=== PATIENT | female | born 1980 | race Caucasian/White ===

== ENCOUNTER 2022-06-23 20:36 | Outpatient (CLI) | payer MEDICAID, SELFPAY | END 2022-06-23 20:37 | disposition home or self-care (01) | PROVIDERS: PCP Family Medicine; Visit Provider Internal Medicine | DX: G47.33 Obstructive sleep apnea (adult) (pediatric) (principal) | CPT/HCPCS: 95810 ==

== ENCOUNTER 2023-10-06 14:32 | Outpatient (CLI) | payer MEDICAID, SELFPAY | END 2023-10-06 14:33 | disposition home or self-care (01) | PROVIDERS: PCP Family Medicine; Visit Provider Family Medicine | DX: M54.16 Radiculopathy, lumbar region (principal); M51.36 Other intervertebral disc degeneration, lumbar region | CPT/HCPCS: 62323; J0702; Q9966 ==

== ENCOUNTER 2024-03-08 08:47 | Outpatient (CLI) | payer MEDICAID, SELFPAY ==
--- OUTSIDE RECORDS SUMMARY | 2024-03-08 08:55 | XMS_ITS | Clinical Summary ---
Author Organization [facility] Address [place], [place] [address] Care Team Providers Care Lay Out And Detail Drafter Name Role Phone Dewayne [place] MD Primary Care Provider [phone] Tiffanie Armenta PA Unavailable Allergies Active Allergy Reactions Criticality Noted Date Comments Adhesive Angioedema,Rash High 11/24/2016 Had to have epi pen in ER Baclofen Other - Describe In Comment Field Medium 09/26/2020 Diffuse numbness Bee Pollen Other - Describe In Comment Field Low 11/18/2016 Sneezing, runny nose Sneezing, runny nose Other reaction(s): Other (See Comments) Sneezing, runny nose Other reaction(s): Other (See Comments) Sneezing, runny nose Grass Pollen Other - Describe In Comment Field Medium 11/18/2016 Sneezing, runny nose Nsaids (Non-Steroidal Anti-Inflammatory Drug) Other - Describe In Comment Field Medium 03/16/2017 PT has had a gastric bypass Other reaction(s): Other (See Comments) H/O ulcer Gastric bypass Tolmetin Stomach Upset Medium 03/16/2017 Other reaction(s): Other (See Comments) H/O ulcer Tree And Shrub Pollen Other - Describe I n Comment Field Low 11/18/2016 Sneezing, runny nose Medications Medication Sig Dispensed Refills Start Date End Date Status multivitamin (MVI) tablet Take 1 Tablet by mouth once daily. Active CPAPIndications:OS A (obstructive sleep apnea) CPAP machine for home use at pressure 5 cmw, full face mask x1/3month with a full face cushion x1/mo 1 Each 11 10/03/19 23 Active diclofenac topical (Voltaren) 1 % gelIndications:Chr onic midline low back pain without sciatica,Bilateral hip pain Apply 2 g topically to affected area(s) four times daily. 100 g 2 11/28/19 23 Active prazosin (MINIPRESS) 5 mg capsuleIndications :Posttraumatic stress disorder Take 2 Capsules (10 mg) by mouth two times daily. 360 Capsule 3 08/26/19 24 Active Insulin [place], Disposable, (BD Perla 2nd Gen Pen Needle) 32 gauge x /32Indications:M orbid obesity with BMI of 40.0-44.9, adult (HC) USE DIRECTED REMOVE THE 2 COVERS ON THE INSULIN PEN NEEDLE BEFORE ADMINISTERING INSULIN DOSE 100 Each 3 09/02/19 24 Active clomiPRAMINE 75 mg capsuleIndications :Generalized anxiety disorder,Mixed obsessional thoughts and acts,Major depressive disorder, recurrent, moderate (HC),Posttraumatic stress disorder,Panic disorder with agoraphobia Take 3 Capsules (225 mg) by mouth at bedtime. 270 Capsule 3 09/02/19 24 Active vortioxetine (TRINTELLIX) 20 mg tabletIndications: Generalized anxiety disorder,Illness anxiety disorder,Mixed obsessional thoughts and acts,Major depressive disorder, recurrent, moderate (HC),Posttraumatic stress disorder,Panic disorder with agoraphobia Take 1 Tablet (20 mg) by mouth once daily. 90 Tablet 3 09/02/19 24 Active mirtazapine (REMERON) 30 mg tabletIndications: Generalized anxiety disorder,Mixed obsessional thoughts and acts,Panic disorder with agoraphobia Take 1 Tablet (30 mg) by mouth at bedtime. May repeat once if needed 90 Tablet 3 09/02/19 24 Active rimegepant (Nurtec ODT) 75 mg orally disintegrating tabletIndications: Intractable migraine without status migrainosus, unspecified migraine type Place 75 mg on the tongue once daily if needed for Headache. 8 Tablet 5 10/27/19 24 Active budesonide-formote roL (SYMBICORT) 160-4.5 mcg/actuation (160-4.5 mcg each actuation) inhalerIndications :Moderate persistent asthma without complication Inhale 2 Puffs by mouth two times daily. 10.2 g 11/04/19 24 Active albuterol 0.083% (2.5 mg/3 mL) neb solutionIndication s:Moderate persistent asthma without complication Inhale 3 mL (2.5 mg) via a nebulizer every 4 hours if needed for Shortness Of Breath. 75 mL 3 11/04/19 24 Active liothyronine (CYTOMEL) 5 mcg tabletIndications: Hypothyroidism (acquired) Take 1 Tablet (5 mcg) by mouth once daily. 90 Tablet 11/04/19 24 Active montelukast (SINGULAIR) 10 mg tabletIndications: Moderate persistent asthma without complication Take 1 Tablet (10 mg) by mouth at bedtime. 90 Tablet 11/04/19 24 Active omeprazole (PRILOSEC) 40 mg Delayed-Release capsuleIndications :Chronic GERD Take 1 capsule by mouth twice daily 180 Capsule 11/04/19 24 Active pentosan polysulfate (Elmiron) 100 mg capsuleIndications :Iron deficiency anemia, unspecified iron deficiency anemia type Take 1 Capsule (100 mg) by mouth three times daily. 270 Capsule 11/04/19 24 Active Ventolin HFA 90 mcg/actuation inhalerIndications :Moderate persistent asthma without complication Inhale 1 Puff by mouth every 4 hours if needed for Shortness Of Breath. 1 Each 6 11/04/19 24 Active metFORMIN (GLUCOPHAGE XR) 500 mg Extended-Release tabletIndications: Obesity (BMI 30-39.9) Take 2 Tablets (1,000 mg) by mouth two times daily with meals. 120 Tablet 2 11/11/19 24 Active NebulizerIndicatio ns:Moderate persistent asthma without complication Nebulizer, disposable neb kit x 4, reuseable neb kit x 1, mask x 1, filters x 1. Frequency of use: daily; Medication: albuterol Length of need: lifelong months 1 Each 12/30/19 24 Active ondansetron (ZOFRAN ODT) 4 mg disintegrating tabletIndications: Injury of head, initial encounter DISSOLVE 1 TABLET IN MOUTH EVERY 8 HOURS NEEDED FOR NAUSEA AND VOMITING 30 Tablet 01/03/20 24 Active lurasidone 60 mg tabIndications:Mix ed obsessional thoughts and acts,Generalized anxiety disorder,Posttraum atic stress disorder,Panic disorder with agoraphobia,Major depressive disorder, recurrent, moderate (HC) Take 1 Tablet (60 mg) by mouth once daily with a meal. Further refills will be prescribed during an appointment 30 Tablet 2 01/29/20 24 Active naltrexone (REVIA) 50 mg tabletIndications: Obesity (BMI 30-39.9) Take 1 tablet by mouth once daily 30 Tablet 01/29/20 24 Active levothyroxine (SYNTHROID) 175 mcg tabletIndications: Hypothyroidism (acquired) Take 1 Tablet (175 mcg) by mouth before breakfast. 90 Tablet 02/24/20 24 Active semaglutide, weight loss, (WEGOVY) 1.7 mg/0.75 mL subcutaneous penIndications:Cla ss 2 obesity with body mass index (BMI) of 38.0 to 38.9 in adult, unspecified obesity type, unspecified whether serious comorbidity present Inject 1.7 mg subcutaneous once weekly. 3 mL 03/03/20 24 Active clonazePAM (KLONOPIN) 0.5 mg tabletIndications: Generalized anxiety disorder,Panic disorder with agoraphobia,Illnes s anxiety disorder TAKE 1 & 1/2 (ONE & ONE-HALF) TABLETS BY MOUTH TWICE DAILY - MINIMUM 30 DAYS BETWEEN REFILLS 90 Tablet 03/07/20 24 Active tiZANidine (ZANAFLEX) 4 mg tabletIndications: Tension headache TAKE 1 TABLET BY MOUTH EVERY 8 HOURS NEEDED FOR MUSCLE SPASM 30 Tablet 07/27/19 24 024 Discontinued(*P atient states no longer taking) levothyroxine (SYNTHROID) 150 mcg tabletIndications: Hypothyroidism (acquired) Take 1 Tablet (150 mcg) by mouth once daily. 90 Tablet 11/04/19 24 024 Discontinued(Re order (E-cancel not sent)) semaglutide, weight loss, (Wegovy) 1 mg/0.5 mL subcutaneous penIndications:Cla ss 2 obesity with body mass index (BMI) of 38.0 to 38.9 in adult, unspecified obesity type, unspecified whether serious comorbidity present Inject 1 mg subcutaneous once weekly. 2 mL 02/01/20 24 024 Discontinued clonazePAM (KLONOPIN) 0.5 mg tabletIndications: Generalized anxiety disorder,Panic disorder with agoraphobia,Illnes s anxiety disorder TAKE 1 & 1/2 (ONE & ONE-HALF) TABLETS BY MOUTH TWICE DAILY 90 Tablet 02/02/20 24 024 Discontinued Active Problems Problem Noted Date Diagnosed Date Social anxiety disorder 06/05/2023 Hx of colonic polyp 01/26/2023 Lumbar spondylosis 01/15/2023 Panic disorder with agoraphobia 12/12/2022 Posttraumatic stress disorder 10/17/2021 Major depressive disorder, recurrent, moderate 0 08/08/2021 Controlled substance agreement signed 07/23/2021 Overview: 07/23/21 Phoenix López MD/psychiatry Mixed obsessional thoughts and acts (OCD) 2020 Generalized anxiety disorder 06/12/2021 Hypothyroidism (acquired) 06/12/2021 Moderate persistent asthma without complication 06/12/2021 Chronic GERD 06/12/2021 Iron deficiency anemia 06/12/2021 Intractable migraine without status migrainosus 06/12/2021 Interstitial cystitis 06/12/2021 Myopia, bilateral 09/10/2020 Unspecified astigmatism, bilateral 09/10/2020 Psoriasis 07/30/2020 Essential hypertension 09/22/2018 Insomnia, psychophysiological 09/22/2018 Irritable bowel syndrome 09/22/2018 Richfield syndrome 05/19/2018 History of Taina-en-Y gastric bypass 05/18/2018 Bilateral fibrocystic breast changes 05/18/2018 Calculus of kidney 05/18/2018 History of colonic polyps 05/18/2018 History of deep vein thrombosis (DVT) of lower e xtremity 05/18/2018 Personal history of pulmonary embolism 8 PTEN gene mutation 05/18/2018 Right ovarian cyst 05/18/2018 S/P excision of lipoma 05/18/2018 Status post total thyroidectomy 05/18/2018 Eosinophilic esophagitis 04/23/2018 Duodenogastric bile reflux 04/23/2018 Overview: Seen on HIDA scan Lumbar radiculopathy 12/08/2017 Lesion of left plantar nerve 12/07/2017 Gastrojejunal anastomotic stricture 01/03/2017 Allergic rhinitis 11/18/2016 OC 06/29/2014 AHI-9 weght 280 lbs 06/23/2022 AHI -5 11/18/2016 Delayed sleep phase syndrome 11/18/2016 Sleep paralysis 11/18/2016 Dysphagia Resolved Problems Problem Noted Date Diagnosed Date Resolved Date Obstructive sleep apnea 07/21/2022 01/0 08/2022 Mixed obsessional thoughts and acts 08/08/2021 10/17/2021 MDD (major depressive disord er), recurrent episode, moderate 08/01/2021 08/02/2021 Alcohol use disorder, severe , in sustained remission since 200407/23/2021 02/22/2024 Major depressive disorder, recurrent 06/12/2021 08/02/2021 Major depressive disorder, r ecurrent episode, in partial remission 06/06/2021 07/23/2021 Obsessive compulsive disorder 04/19/2021 08/02/2021 Sepsis 02/28/2020 06/13/2022 Obesity, Class III, BMI 40-49.9 03/20/2016 02/22/2024 Gastroesophageal reflux disease 06/13/2022 Overview: EGD 09/30/2021 - nodular mucosal variant middle third of esophagus, biopsy showed glycogenic acanthosis - 5cm gastric pouch, 2cm anastomosis without ulceration - pH probe placed. Encounters Date Type Department Care Team Description 03/05/2024 Refill [facility] [address] [place] [address] Phoenix López MD Refill Request (Clonazepam) 03/02/2024 Refill [facility] [address] [facility] [place] [address] Tiffanie Armenta PA Refill Request (Wegovy) 02/22/2024 10:55 AM CDT Office Visit [facility] [address] [place] [address] Kamille Stubbs, TB screening (For School ) 02/22/2024 Travel 02/01/2024 3:00 PM CDT Telemedicine [facility] [address] [place] [address] Tiffanie Armenta PA Weight (Follow up); Telehealth (No vitals taken) 02/01/2024 Refill [facility] [address] [place] [address] Phoenix López MD Refill Request (Clonazepam) 01/29/2024 12:30 PM CDT Telemedicine [facility] [address] [place] [address] Phoenix López MD Telehealth; Medication Management (feeling, I'm feeling OK, I'm still having a lot of anxiety, but feeling a little better since the last time we talked.) 01/29/2024 Refill [facility] [address] [place] [address] Malina Vasquez, MILKING WORKER Refill Request (Naltrexone) 01/29/2024 Travel 01/22/2024 8:35 AM CDT Procedure Only [facility] [address] [place] [address] Sarthak Evans MD Procedure (Ultrasound guided injection emiliano... 01/22/2024 Travel 01/13/2024 Refill [facility] [address] [facility] [place] [address] Malina Vasquez, MILKING WORKER Refill Request (Wegovy) 12/31/[address] [phone] Annabel Wetzel NP Refill Request (Ondansetron) 12/28/2023 11:00 AM CDT Telemedicine [facility] [address] [place] [address] Phoenix López MD Telehealth (patient is in [place]); Follow Up 12/27/2023 Travel 12/27/2023 Refill [facility] [address] [place] [address] Malina Vasquez MILKING WORKER Refill Request (Naltrexone) 12/11/2023 Refill [facility] [address] [place] [address] Malina Vasquez MILKING WORKER Refill Request (Wegovy) 12/08/[address] [phone] Carolina Yarbrough, PsyD, LP Late Cancel Appointment (Due to class ) from Last 3 Months Immunizations Name Administration Dates Next Due COVID-19 vaccine (Divas DiamondBio NTech 30mcg/0.3mL) PF, MDV 05/03/2021,10/29/2020,10/05/2020 Hepatitis B (Adult) 09/30/2023,05/29/2023,2022 Influenza RIV4 (Age 18+ Year s) PRESERV FREE 04/19/2023 Influenza Virus, Unspecified 04/24/2020, 04/16/2019,03/31/2016,2013 Influenza, IIV4 04/17/2022,03/28/2021 Pneumococcal Conj 20-valent (Prevnar 20) 02/22/2024 Pneumococcal Poly,23-Valent (Pneumovax) 04/24/2020 Tdap 08/09/2020 Family History Medical History Relation Name Comments Other Father high cholestero l Cancer-breast Maternal Aunt 1 Cancer-breast Maternal Aunt 2 Diabetes Maternal Grandmother Mental illness Maternal Uncle manic depre ssion/bipolar Cancer-breast Mother Pain Mother chronic Thyroid Disease Mother Arrhythmia No Family History Relation Name Status Comments Father Maternal Aunt 1 Maternal Aunt 2 Alive Maternal Grandmother Maternal Uncle Mother Social History Tobacco Use Types Packs/Day Years Used Date Smoking Tobacco: Never Smokeless Tobacco: Never Tobacco Cessation:Counseling Given: Yes Alcohol Use Standard Drinks/Week Comments Not Currently 0 (1 standard drink = 0.6 oz pure alcohol) last drank in 2004 as not interested. Used to binge drink in college 20 drinks at a time twice a week to blacking out. PHQ-2 Answer Date Recorded PHQ-2 TOTAL SCORE 6 01/29/2024 Social Connections Answer Date Recorded Frequency of Communication with Friends and Fami ly 0 02/22/2024 Alcohol Use Answer Date Recorded How often do you have a drink containing alcohol ? 0 11/22/2021 Average Number of Drinks Not on file 022 Frequency of Binge Drinking Not on file 12/2021 Financial Resource Strain Answer Date R ecorded Difficulty of Paying Living Expenses 3 02/22/2024 Difficulty of Paying Living Expenses Not on file 02/22/2024 Food Insecurity Answer Date Recorded Worried About Running Out of Food in the Last Ye ar 1 02/22/2024 Transportation Needs Answer Date Record ed Lack of Transportation (Medical) 1 02/22/2024 Housing Stability Answer Date Recorded Unable to Pay for Housing in the Last Year 1 02/22/2024 Education Answer Date Recorded What is the highest level of school you have completed or the highest degree you have received? Bachelor's degree (e.g., BA, AB, BS) 09/19/2022 Sex and Gender Information Value Date Recorded Sex Assigned at Not on file Gender Identity Not on file Sexual Orientation Not on file Obstetrics History Para Term AB IAB SAB Ectopic Multiple Livin g Live Births 2 2 2 Date Outcome GA Total Labor Labor/2nd/3rd Weight Sex Type Anes PTL Mercedes A1 A5 Name Clin 2013 SAB 09/2019 SAB Last Filed Vital Signs Vital Sign Reading Time Taken Comments Blood Pressure 100/72 02/22/2024 11:08 AM CDT Pulse 94 02/22/2024 11:08 AM CDT Temperature 36.6 ??C (97.8 ??F) 01/22/2024 8:41 AM CD T Respiratory Rate 20 01/30/2023 4:35 PM CDT Oxygen Saturation 97% 01/22/2024 8:41 AM CDT Inhaled Oxygen Concentration - - Weight 95.7 kg (210 lb 14.4 oz) 024 11:08 AM CDT Height 157.5 cm (5' 2) 02/01/2024 3:00 PM CDT Body Mass Index 38.57 02/01/2024 3:00 PM CDT Plan of Treatment Upcoming Encounters Date Type Department Care Team (Late st Contact Info) Description 03/08/2024 9:00 AM CDT Office Visit [facility] [address] [place] [phone] Sarthak Evans MD [address] [place] [address] Arrived 03/11/2024 12:30 PM CDT Telemedicine [facility] [address] [place] [address] Phoenix López MD [address] [place] [address] 04/06/2024 9:30 AM CDT Telemedicine [facility] [address] [place] [address] Carolina Yarbrough, Harinder, LP [address] [place] [address] 04/18/2024 11:30 AM CDT Telemedicine [facility] [address] [place] [address] Tiffanie Armenta PA [address] [place], [place] [id number] Health Maintenance Due Date Last Done Comments HIV for age 15-65 1997 Influenza for age 9-49 03/20/2024 , 04/17/2022, 03/28/2021, Additional history exists BMI (ht and wt on same day) for age 18+ 01/31/2025 02/01/2024, 11/11/2023, 06/04/2023, Additional history exists Depression screening for age 12+ 01/31/2025 02/01/2024, 02/01/2024, 01/29/2024, Additional history exists Pap test for age 21-65 09/13/2025 (Verified in Care Everywhere or Patient Record) Tetanus booster 08/09/2030 08/09/2020 Tdap Completed 08/09/2020 COVID-19 vaccine series Completed 04/26/20, 04/17/2022, 05/03/2021, Additional history exists Hepatitis C screening for ag e 18-79 Completed 02/22/2024 Pneumococcal series for age 6-64 Completed 02/22/20 24, 04/24/2020 Procedures Procedure Name Priority Date/Time Associated Diagnosis Comments AMB EPIDURAL STEROID INJECTION Routine 03/08/2024 8:00 AM CDT Spinal stenosis of lumbar region with neurogenic claudication Lumbar facet arthropathy Lumbar radiculopathy T4,FREE Routine 02/22/2024 11:56 AM CDT Hypothyroidism (acquired) CBC WITH AUTO DIFFERENTIAL Routine 02/22/2024 11:56 AM CDT Iron deficiency anemia, unspecified iron deficiency anemia type QFT MITOGEN PERFORMABLE Routine 02/22/2024 11:56 AM CDT Screening-pulmonary TB QFT TB2 PERFORMABLE Routine 02/22/2024 1 1:56 AM CDT Screening-pulmonary TB QFT TB1 PERFORMABLE Routine 02/22/2024 1 1:56 AM CDT Screening-pulmonary TB QUANTIFERON TB GOLD PLUS Routine 02/22/2024 11:56 AM CDT Screening-pulmonary TB FERRITIN Routine 02/22/2024 11:56 AM CDT Iron deficiency anemia, unspecified iron deficiency anemia type IRON PLUS IRON BINDING CAP Routine 02/22/2024 11:56 AM CDT Iron deficiency anemia, unspecified iron deficiency anemia type HEMOGLOBIN A1C SCREENING Routine 02/22/2024 11:56 AM CDT Screening for diabetes mellitus ANTI HCV Routine 02/22/2024 11:56 AM CDT Encounter for hepatitis C screening test for low risk patient LIPID PANEL W REFLEX MEASURED LDL Routine 02/22/2024 11:56 AM CDT Lipid screening TSH WITH REFLEX Routine 02/22/2024 11:56 AM CDT Hypothyroidism (acquired) COMP METABOLIC PANEL Routine 02/22/2024 11:56 AM CDT Screening for endocrine, metabolic and immunity disorder CBC WITH AUTO DIFFERENTIAL Routine 02/22/2024 11:56 AM CDT Iron deficiency anemia, unspecified iron deficiency anemia type QUANTIFERON TB GOLD PLUS Routine 02/22/2024 11:56 AM CDT Screening-pulmonary TB BEDSIDE US STUDY ARCHIVE Routine 01/22/2024 10:45 AM CDT Primary osteoarthritis of both hips from Last 3 Months Results * QFT MITOGEN PERFORMABLE (02/22/2024 11:56 AM CDT) MITOGEN 0.98 IU/mL 02/24/2024 10:32 AM CDT [facility] Blood BLOOD SPECIMEN / Unknown Venipuncture / Unknown 02/22/2024 11:56 AM CDT 02/22/2024 11:56 AM CDT Kamille Stbubs DO CHEMISTRY Performing Organization Address City/[facility]/ZIP Co de Phone Number [facility] [address] * QFT TB2 PERFORMABLE (02/22/2024 11:56 AM CDT) TB2 0.04 IU/mL 02/24/2024 11:11 AM CDT [facility] Blood BLOOD SPECIMEN / Unknown Venipuncture / Unknown 02/22/2024 11:56 AM CDT 02/22/2024 11:56 AM CDT Kamille Stubbs DO CHEMISTRY [facility] [address] * QFT TB1 PERFORMABLE (02/22/2024 11:56 AM CDT) TB1 0.02 IU/mL 02/24/2024 10:28 AM CDT [facility] Blood BLOOD SPECIMEN / Unknown Venipuncture / Unknown 02/22/2024 11:56 AM CDT 02/22/2024 11:56 AM CDT Kamille Stubbs DO CHEMISTRY [facility] [address] [place] [address], * QUANTIFERON TB GOLD PLUS (02/22/2024 11:56 AM CDT) QFTP NIL 0.02 02/24/2024 12:07 PM CDT [facility] TB1 0.02 IU/mL 02/24/2024 12:07 PM CDT [facility] TB2 0.04 IU/mL 02/24/2024 12:07 PM CDT [facility] MITOGEN 0.98 IU/mL 02/24/2024 12:07 PM CDT [facility] QFTP TB AG1 - NIL 0.00 024 12:07 PM CDT [facility] TB1-NIL % OF NIL 0 % 02/24/20 24 12:07 PM CDT [facility] QFTP TB AG2 - NIL 0.02 024 12:07 PM CDT [facility] TB2-NIL % OF NIL 100 % 02/24/20 24 12:07 PM CDT [facility] QFTP MITOGEN - NIL 0.96 2023 12:07 PM CDT [facility] QFTP QUANTIFERON INTERPRETATION Negative Negative 02/24/2024 12:07 PM CDT [facility] Blood BLOOD SPECIMEN / Unknown Venipuncture / Unknown 02/22/2024 11:56 AM CDT 02/22/2024 11:56 AM CDT Narrative [facility] - 02/24/2024 12:07 PM CDT M. tuberculosis infection not likely, but cannot be excluded in cases of immunosuppression. CAUTION: The performance of QuantiFERON-TB Gold Plus has not been evaluated in specimens from: - Individuals with impaired or altered immune factors (HIV infections, transplant patients, those receieving immunosuppressive drugs such as corticosteroids) and those with other clinical conditions (e.g., diabetes, hematological disorders). - Individuals younger than 17 years old. ??Refer to CDC website for testing recommendations in children 6-17 years old. - women Kamille Stubbs DO CHEMISTRY [facility] [address] [place] [address], * CBC WITH AUTO DIFFERENTIAL (02/22/2024 11:56 AM CDT) WHITE BLOOD COUNT 5.7 4.5 - 11.0 thou/cu mm 02/22/2024 12:29 PM [facility] RED BLOOD COUNT 4.30 4.00 - 5.20 mil/cu mm 02/22/2024 12:29 PM [facility] HEMOGLOBIN 13.6 12.0 - 16.0 g/dL 02/22/2024 12:29 PM [facility] HEMATOCRIT 42.5 33.0 - 51.0 % 02/22/2024 12:29 PM [facility] MCV 99 80 - 100 fL 02/22/2024 12:29 PM [facility] MCH 31.6 26.0 - 34.0 pg 02/22/2024 12:29 PM [facility] MCHC 32.0 32.0 - 36.0 g/dL 02/22/2024 12:29 PM [facility] RDW 13.2 11.5 - 15.5 % 02/22/2024 12:29 PM [facility] PLATELET COUNT 290 140 - 440 thou/cu mm 02/22/2024 12:29 PM [facility] MPV 9.9 6.5 - 11.0 fL 02/22/2024 12:29 PM [facility] % NEUT 66.8 % 02/22/2024 12:29 PM [facility] % LYMPH 24.8 % 02/22/2024 12:29 PM [facility] % MONO 6.9 % 02/22/2024 12:29 PM CDT [facility] % EOS 1.1 % 02/22/2024 12:29 PM CDT [facility] % BASO 0.4 % 02/22/2024 12:29 PM CDT [facility] ABSOLUTE NEUTROPHILS 3.8 1.7 - 7.0 thou/cu mm 02/22/2024 12:29 PM CDT [facility] ABSOLUTE LYMPHOCYTES 1.4 0.9 - 2.9 thou/cu mm 02/22/2024 12:29 PM CDT [facility] ABSOLUTE MONOCYTES 0.4 <0.9 thou/cu mm 02/22/2024 12:29 PM CDT [facility] ABSOLUTE EOSINOPHILS 0.1 <0.5 thou/cu mm 02/22/2024 12:29 PM CDT [facility] ABSOLUTE BASOPHILS 0.0 <0.3 thou/cu mm 02/22/2024 12:29 PM CDT [facility] Blood BLOOD SPECIMEN / Unknown Venipuncture / Unknown 02/22/2024 11:56 AM CDT 02/22/2024 11:56 AM CDT Kamille Stubbs DO HEMATOLOGY Performing Organization Address City/State/[facility] Co de Phone Number [facility] [address] [place] [address] * HEMOGLOBIN A1C SCREENING (02/22/2024 11:56 AM CDT) HEMOGLOBIN A1C SCREENING 5.2 <=6.4 % 02/22/2024 12:20 PM CDT [facility] Blood BLOOD SPECIMEN / Unknown Venipuncture / Unknown 02/22/2024 11:56 AM CDT 02/22/2024 11:56 AM CDT Narrative [facility] - 02/22/2024 12:20 PM CDT ? (<5.7%) ?Normal ? (5.7% to 6.4%) ? Indicates prediabetes ? (>=6.5%) ? Confirms diabetes Falsely low levels may be seen with: Recent Transfusion, Recent Significant Blood Loss, Hemolytic Diseases, or Falsely elevated levels may be seen with: Untreated Anemias, Splenectomy Kamille Stubbs DO CHEMISTRY Performing Organization Address [facility] de Phone Number [facility] [address] [place] [address] * (ABNORMAL) TSH WITH REFLEX (02/22/2024 11:56 AM CDT) TSH 20.70(H) 0.27 - 4.20 uIU/mL 02/22/2024 1:53 PM CDT [facility] Blood BLOOD SPECIMEN / Unknown Venipuncture / Unknown 02/22/2024 11:56 AM CDT 02/22/2024 11:56 AM CDT [facility] - 02/22/2024 1:53 PM CDT In Adults, TSH values between 5.00 and 10.00 uIU/ml do not necessarily indicate the presence of Hypothyroidism. Correlation with clinical findings such as presence of goiter and/or Thyroperoxidase (TPO) Antibody may be helpful. For more information please refer to DAMON 2004; 291: 228-238. Kamille Stubbs DO CHEMISTRY Performing Organization Address [facility] Co de Phone Number [facility] [address] [place] [address] * (ABNORMAL) LIPID PANEL W REFLEX MEASURED LDL (02/22/2024 11:56 AM CDT) CHOLESTEROL,TOTAL 236(H) 100 - 199 mg/dL 02/22/2024 1:53 PM CDT [facility] Comment: Cholesterol, Total Reference Ranges Desirable <200 mg/dL Borderline 200-239 mg/dL High >=240 mg/dL TRIGLYCERIDES 111 <150 mg/dL 02/22/2024 1:53 PM CDT [facility] HDL CHOLESTEROL 54 >40 mg/dL 1:53 PM CDT [facility] NON-HDL CHOLESTEROL 182(H) <145 mg/dl 02/22/2024 1:53 PM CDT [facility] CHOL/HDL RATIO 4.37 <4.50 02/22/2024 1:53 PM CDT [facility] LDL CHOLESTEROL 160(H) <=130 mg/dL 02/22/2024 1:53 PM CDT [facility] VLDL CHOLESTEROL 22 <=30 mg/dL 02/22/2024 1:53 PM CDT [facility] PROVIDER ORDERED STATUS RANDOM 02/22/2024 1:53 PM CDT [facility] Blood BLOOD SPECIMEN / Unknown Venipuncture / Unknown 02/22/2024 11:56 AM CDT 02/22/2024 11:56 AM CDT Kamille Stubbs DO CHEMISTRY Performing Organization Address City/[facility]/ZIP Co de Phone Number [facility] [address] [place] [address] * IRON PLUS IRON BINDING CAP (02/22/2024 11:56 AM CDT) IRON 70 37 - 145 ug/dL 02/23/2024 12:13 AM CDT [facility] UIBC (UNSATURATED) 204 112 - 347 ug/dL 02/23/2024 12:13 AM CDT [facility] IRON BINDING CAPACITY 274 250 - 400 ug/dL 02/23/2024 12:13 AM CDT [facility] IRON,% SATURATION 26 14 - 50 % 02/23/2024 12:13 AM CDT [facility] Blood BLOOD SPECIMEN / Unknown Venipuncture / Unknown 02/22/2024 11:56 AM CDT 02/22/2024 11:56 AM CDT Kamille Stubbs DO CHEMISTRY [facility] [address] [place] [address], * ANTI HCV (02/22/2024 11:56 AM CDT) Pathologist [facility] [place] HEPATITIS C ANTIBODY Non-Reacti ve Non-React asya 02/22/2024 10:30 PM CDT [facility] Comment:Please note, per www .CDC.gov: If a patient is known to be at high risk of HCV infection, or is symptomatic, and the physician's suspicion of HCV infection is high, HCV RNA testing is often employed and is of diagnostic value, even after an initial negative anti-HCV test result. Blood BLOOD SPECIMEN / Unknown Venipuncture / Unknown 02/22/2024 11:56 AM CDT 02/22/2024 11:56 AM CDT Kamille Stubbs DO SEND OUTS Performing Organization Address City/[facility]/ZIP Co de Phone Number [facility] [address] [place] [address], * (ABNORMAL) T4,FREE (02/22/2024 11:56 AM CDT) Pathologist [facility] [place] T4,FREE 0.88(L) 0.93 - 1.70 ng/dL 02/22/2024 10:46 PM CDT [facility] Blood BLOOD SPECIMEN / Unknown Venipuncture / Unknown 02/22/2024 11:56 AM CDT 02/22/2024 11:56 AM CDT Kamille Stubbs DO CHEMISTRY Performing Organization Address City/[facility]/ZIP Co de Phone Number [facility] [address] [place] [address], * FERRITIN (02/22/2024 11:56 AM CDT) Pathologist [facility] [place] FERRITIN 126.0 15.0 - 150.0 ng/mL 02/23/2024 12:13 AM CDT [facility] Blood BLOOD SPECIMEN / Unknown Venipuncture / Unknown 02/22/2024 11:56 AM CDT 02/22/2024 11:56 AM CDT Kamille Stubbs DO CHEMISTRY [facility] [address] [place] [address], * (ABNORMAL) COMP METABOLIC PANEL (02/22/2024 11:56 AM CDT) SODIUM 139 136 - 145 mmol/L 02/22/2024 1:53 PM [facility] POTASSIUM 4.0 3.5 - 5.1 mmol/L 02/22/2024 1:53 PM [facility] CHLORIDE 102 98 - 107 mmol/L 02/22/2024 1:53 PM [facility] CO2,TOTAL 23 22 - 29 mmol/L 02/22/2024 1:53 PM [facility] ANION GAP 14 5 - 18 02/22/2024 1:53 PM [facility] GLUCOSE 114(H) 70 - 99 mg/dL 02/22/2024 1:53 PM [facility] CALCIUM 8.1(L) 8.6 - 10.0 mg/dL 02/22/2024 1:53 PM [facility] BUN 12 6 - 20 mg/dL 02/22/2024 1:53 PM [facility] CREATININE 0.85 0.50 - 0.90 mg/dL 02/22/2024 1:53 PM [facility] BUN/CREAT RATIO 14 10 - 20 1:53 PM [facility] eGFR 88(L) >90 mL/min/1.7 3m2 02/22/2024 1:53 PM [facility] Comment:As of 2021, eG FR is calculated by the CKD-EPI creatinine equation without race adjustment. ??eGFR can be influenced by muscle mass, exercise, and diet. ??The reported eGFR is an estimation only and is only applicable if the renal function is stable. ALBUMIN 4.3 4.0 - 4.9 g/dL 02/22/2024 1:53 PM [facility] PROTEIN,TOTAL 7.1 6.0 - 8.0 g/dL 02/22/2024 1:53 PM CDT [facility] BILIRUBIN,TOTAL 0.5 0.0 - 1.2 mg/dL 02/22/2024 1:53 PM CDT [facility] ALK PHOSPHATASE 82 35 - 104 IU/L 02/22/2024 1:53 PM CDT [facility] ALT (SGPT) 16 10 - 35 IU/L 02/22/2024 1:53 PM CDT [facility] AST (SGOT) 24 10 - 35 IU/L 02/22/2024 1:53 PM CDT [facility] Blood BLOOD SPECIMEN / Unknown Venipuncture / Unknown 02/22/2024 11:56 AM CDT 02/22/2024 11:56 AM CDT Kamille Stubbs DO CHEMISTRY [facility] [address] [place] [address] * BEDSIDE US STUDY ARCHIVE (01/22/2024 10:45 AM CDT) Narrative Winsome Martinez - 01/22/2024 10:45 AM CDT The patient was seen for ultrasound guided injection by Dr. Sarthak Evans. Ultrasound was not used for diagnostic purposes, but to guide the needle placement and document the position of the injection. ?? See patient's EPIC encounter for the detail of the procedure; see RAVEN for saved images of the injection. Sarthak Evans MD PROCEDURE ORD from Last 3 Months Advance Directives * Full Code (Latest Code Status on File) Date Activated Date Inactivated Comments 01/26/2023 11:31 AM 01/26/2023 4:10 PM Question Answer Comments Code Status Discussion: Discussed * Full Code Date Activated Date Inactivated Comments 09/30/2021 8:44 AM 09/30/2021 12:50 PM Question Answer Comments Code Status Discussion: Reviewed Preferences * Full Code Date Activated Date Inactivated Comments 07/02/2021 11:45 AM 07/02/2021 3:37 PM Question Answer Comments Code Status Discussion: Discussed Care Teams Lay Out And Detail Drafter Relationship Specialty Start Date End Date Dewayne Palmer MD [address] [place] [address] [place] [address] PCP - General Family Practice 06/14/21 Tiffanie Armenta PA [address] [facility] [place] [address] Physician Projector Booth Operator 02/01/24
== END 2024-03-08 08:48 | disposition home or self-care (01) ==
PROVIDERS: PCP Family Medicine; Visit Provider Family Medicine
DX: M54.16 Radiculopathy, lumbar region (principal); M51.36 Other intervertebral disc degeneration, lumbar region
CPT/HCPCS: 62323; J0702; Q9966

== ENCOUNTER 2024-06-14 07:55 | Outpatient (CLI) | payer MEDICAID, SELFPAY ==
--- OUTSIDE RECORDS SUMMARY | 2024-06-14 07:58 | XMS_ITS | Clinical Summary ---
Author Organization [facility] Address [place], [place] [address] Care Team Providers Care Emblem Maker Name Role Phone Dewayne Palmer MD Primary Care Provider [phone] Tiffanie Armenta PA Unavailable Allergies Active Allergy [...] daily. 100 g 2 11/28/19 23 Active Insulin [place], Disposable, (BD Perla 2nd Gen Pen Needle) 32 gauge x 5/32Indications:M orbid obesity with BMI of 40.0-44.9, adult (HC) USE DIRECTED REMOVE THE 2 COVERS ON THE INSULIN PEN NEEDLE BEFORE ADMINISTERING INSULIN DOSE 100 Each 3 09/02/19 24 Active budesonide-formote roL (SYMBICORT) 160-4.5 mcg/actuation [...] twice daily 180 Capsule 11/04/19 24 Active Ventolin HFA 90 [...] lifelong months 1 Each 12/30/19 24 Active prazosin (MINIPRESS) 5 mg capsuleIndications :Generalized anxiety disorder,Posttraum atic stress disorder,Panic disorder with agoraphobia,Social anxiety disorder Take 2 capsules (10 mg) by mouth every morning AND 1 capsule (5 mg) every afternoon AND 2 capsules (10 mg) every evening 360 Capsule 3 03/11/20 24 Active clomiPRAMINE 75 mg capsuleIndications :Major depressive disorder, recurrent, moderate (HC),Generalized anxiety disorder,Posttraum atic stress disorder,Mixed obsessional thoughts and acts,Panic disorder with agoraphobia Take 3 Capsules (225 mg) by mouth at bedtime. 270 Capsule 3 04/11/20 24 Active vortioxetine (TRINTELLIX) 20 mg tabletIndications: Major depressive disorder, recurrent, moderate (HC),Generalized anxiety disorder,Posttraum atic stress disorder,Mixed obsessional thoughts and acts,Panic disorder with agoraphobia,Illnes s anxiety disorder Take 1 Tablet (20 mg) by mouth once daily. 90 Tablet 3 04/11/20 24 Active mirtazapine (REMERON) 30 mg tabletIndications: Generalized anxiety disorder,Mixed obsessional thoughts and acts,Panic disorder with agoraphobia Take 1 Tablet (30 mg) by mouth at bedtime. May repeat once if needed 90 Tablet 3 04/11/20 24 Active levothyroxine (SYNTHROID) 175 mcg tabletIndications: Hypothyroidism (acquired) TAKE 1 TABLET BY MOUTH ONCE DAILY BEFORE BREAKFAST 90 Tablet 05/04/20 24 Active naltrexone (REVIA) 50 mg tabletIndications: Class 2 obesity with body mass index (BMI) of 38.0 to 38.9 in adult, unspecified obesity type, unspecified whether serious comorbidity present Take 1 tablet by mouth once daily 30 Tablet 05/31/20 24 Active ondansetron (ZOFRAN ODT) 4 mg disintegrating tabletIndications: Injury of head, initial encounter DISSOLVE 1 TABLET IN MOUTH EVERY 8 HOURS NEEDED FOR NAUSEA AND VOMITING 30 Tablet 06/01/20 24 Active Wegovy 2.4 mg/0.75 mL subcutaneous penIndications:Cla ss 2 obesity with body mass index (BMI) of 38.0 to 38.9 in adult, unspecified obesity type, unspecified whether serious comorbidity present Inject 2.4 mg subcutaneous once weekly. 3 mL 05/31/20 24 Active ubrogepant (Ubrelvy) 50 mg tab tabletIndications: Intractable migraine without status migrainosus, unspecified migraine type Take 1 Tablet (50 mg) by mouth 2 times daily if needed for Migraine. Give at minimum 2hrs apart. Max Dose: 200mg per 24hrs. 180 Tablet 1 06/08/20 24 Active Zepbound 10 mg/0.5 mL penIndications:Cla ss 2 obesity with body mass index (BMI) of 38.0 to 38.9 in adult, unspecified obesity type, unspecified whether serious comorbidity present Inject 10 mg subcutaneous once weekly. 2 mL 06/10/20 24 Active pentosan polysulfate (Elmiron) 100 mg capsuleIndications :Hemorrhagic cystitis Take 1 Capsule (100 mg) by mouth three times daily. 270 Capsule 06/10/20 24 Active clonazePAM (KLONOPIN) 0.5 mg tabletIndications: Panic disorder with agoraphobia,Illnes s anxiety disorder,Generaliz ed anxiety disorder TAKE 1 & 1/2 (ONE & ONE-HALF) TABLETS BY MOUTH TWICE DAILY - MINIMUM 28 DAYS BETWEEN REFILLS 84 Tablet 06/13/20 24 Active lurasidone 120 mg tabIndications:El or depressive disorder, recurrent, moderate (HC),Posttraumatic stress disorder,Panic disorder with agoraphobia,Genera lized anxiety disorder,Mixed obsessional thoughts and acts Take 1 Tablet (120 mg) by mouth with dinner. 90 Tablet 3 06/13/20 24 Active clonazePAM (KLONOPIN) 0.5 mg tabletIndications: Panic disorder with agoraphobia,Illnes s anxiety disorder,Generaliz ed anxiety disorder TAKE 1 & 1/2 (ONE & ONE-HALF) TABLETS BY MOUTH TWICE DAILY - MINIMUM 28 DAYS BETWEEN REFILLS 84 Tablet 06/13/20 24 Active clonazePAM (KLONOPIN) 0.5 mg tabletIndications: Panic disorder with agoraphobia,Illnes s anxiety disorder,Generaliz ed anxiety disorder TAKE 1 & 1/2 (ONE & ONE-HALF) TABLETS BY MOUTH TWICE DAILY - MINIMUM 28 DAYS BETWEEN REFILLS 84 Tablet 06/13/20 24 Active rimegepant (Nurtec ODT) 75 mg orally disintegrating tabletIndications: Intractable migraine without status migrainosus, unspecified migraine type Place 75 mg on the tongue once daily if needed for Headache. 8 Tablet 5 10/27/19 24 024 Discontinued(Re order (E-cancel not sent)) pentosan polysulfate (Elmiron) 100 mg capsuleIndications :Iron deficiency anemia, unspecified iron deficiency anemia type Take 1 Capsule (100 mg) by mouth three times daily. 270 Capsule 11/04/19 24 024 Discontinued(Re order (E-cancel not sent)) ondansetron (ZOFRAN ODT) 4 mg disintegrating tabletIndications: Injury of head, initial encounter DISSOLVE 1 TABLET IN MOUTH EVERY 8 HOURS NEEDED FOR NAUSEA AND VOMITING 30 Tablet 01/03/20 24 024 Discontinued clonazePAM (KLONOPIN) 0.5 mg tabletIndications: Generalized anxiety disorder,Panic disorder with agoraphobia,Illnes s anxiety disorder TAKE 1 & 1/2 (ONE & ONE-HALF) TABLETS BY MOUTH TWICE DAILY - MINIMUM 30 DAYS BETWEEN REFILLS 90 Tablet 04/08/20 24 024 Discontinued(*M edication adjustment) clonazePAM (KLONOPIN) 0.5 mg tabletIndications: Generalized anxiety disorder,Panic disorder with agoraphobia,Illnes s anxiety disorder TAKE 1 & 1/2 (ONE & ONE-HALF) TABLETS BY MOUTH TWICE DAILY - MINIMUM 30 DAYS BETWEEN REFILLS 90 Tablet 05/08/20 24 024 Discontinued(*M edication adjustment) clonazePAM (KLONOPIN) 0.5 mg tabletIndications: Generalized anxiety disorder,Panic disorder with agoraphobia,Illnes s anxiety disorder TAKE 1 & 1/2 (ONE & ONE-HALF) TABLETS BY MOUTH TWICE DAILY - MINIMUM 28 DAYS BETWEEN REFILLS 84 Tablet 06/06/20 24 024 Discontinued(*M edication adjustment) lurasidone 120 mg tabIndications:El or depressive disorder, recurrent, moderate (HC),Generalized anxiety disorder,Posttraum atic stress disorder,Mixed obsessional thoughts and acts,Panic disorder with agoraphobia Take 1 Tablet (120 mg) by mouth once daily with a meal. Further refills will be prescribed during an appointment 30 Tablet 2 04/11/20 24 024 Discontinued(*M edication adjustment) naltrexone (REVIA) 50 mg tabletIndications: Class 2 obesity with body mass index (BMI) of 38.0 to 38.9 in adult, unspecified obesity type, unspecified whether serious comorbidity present Take 1 tablet by mouth once daily 30 Tablet 05/04/20 024 Discontinued Wegovy 2.4 mg/0.75 mL subcutaneous penIndications:Cla ss 2 obesity with body mass index (BMI) of 38.0 to 38.9 in adult, unspecified obesity type, unspecified whether serious comorbidity present INJECT 2.4MG SUBCUTANEOUS ONCE WEEKLY 3 mL 05/04/20 024 Discontinued pentosan polysulfate (Elmiron) 100 mg capsuleIndications :Hemorrhagic cystitis Take 1 Capsule (100 mg) by mouth three times daily. 270 Capsule 06/08/20 024 Discontinued(Re order (E-cancel not sent)) Active Problems Problem Noted Date Diagnosed Date Illness anxiety disorder 04/11/2024 Social anxiety disorder 06/05/2023 Hx of colonic polyp 01/26/2023 Lumbar spondylosis 01/15/2023 Panic disorder with agoraphobia 12/12/2022 Posttraumatic stress disorder 10/17/2021 Major depressive disorder, recurrent, moderate 0 08/08/2021 Controlled substance agreement signed 07/23/2021 Overview (07/23/2021): 07/23/21 Phoenix López MD/psychiatry Mixed obsessional thoughts and acts (OCD) 2020 Generalized anxiety disorder 06/12/2021 Hypothyroidism (acquired) 06/12/2021 Moderate persistent asthma without complication 06/12/2021 Chronic GERD 06/12/2021 Iron deficiency anemia 06/12/2021 Intractable migraine without status migrainosus 06/12/2021 Interstitial cystitis 06/12/2021 Myopia, bilateral 09/10/2020 Unspecified astigmatism, bilateral 09/10/2020 Psoriasis 07/30/2020 Essential hypertension 09/22/2018 Insomnia, psychophysiological 09/22/2018 Irritable bowel syndrome 09/22/2018 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 [...] Eosinophilic esophagitis 04/23/2018 Duodenogastric bile reflux 04/23/2018 Overview (10/01/2021): Seen on HIDA scan Lumbar radiculopathy 12/08/2017 Lesion of left plantar nerve 12/07/2017 Gastrojejunal anastomotic stricture 01/03/2017 Allergic rhinitis 11/18/2016 OC 06/29/2014 AHI-9 weght 280 lbs 06/23/2022 AHI -5 11/18/2016 Delayed sleep phase syndrome 11/18/2016 Sleep paralysis 11/18/2016 Dysphagia Resolved Problems Problem Noted Date Diagnosed Date Resolved Date Obstructive sleep apnea 07/21/202208/2022 Mixed obsessional thoughts and acts 08/08/2021 10/17/2021 [...] 40-49.9 03/20/2016 02/22/2024 Gastroesophageal reflux disease 06/13/2022 Overview (10/01/2021): EGD 09/30/2021 - nodular mucosal variant middle third of esophagus, biopsy showed glycogenic acanthosis - 5cm gastric pouch, 2cm anastomosis without ulceration - pH probe placed. Encounters Date Type Department Care Team Description 06/13/2024 9:30 AM REGIONAL DIRECTOR OF ADMISSIONS Telemedicine [facility] [address] [place] [address] Phoenix López MD Telehealth 06/12/2024 Travel 06/10/2024 11:30 AM REGIONAL DIRECTOR OF ADMISSIONS Telemedicine [facility] [address] [facility] [place] [address] Tiffanie Armenta PA Telehealth (No vitals taken); Weight (Follow up) 06/10/[address] [phone] Dewayne Palmer MD Prior Authorization (pentosan polysulfate (Elmiron) 100 mg capsule) 06/10/[address] [address] Dewayne Palmer MD Prior Authorization (ubrogepant (Ubrelvy) 50 mg tab tablet) 06/09/2024 Travel 06/03/[address] [phone] Dewayne Palmer MD Prior Authorization (pentosan polysulfate (Elmiron) 100 mg capsule - DENIED ) 06/03/[address] [phone] Dewayne Palmer MD Prior Authorization (rimegepant (Nurtec ODT) 75 mg orally disintegrating tablet - DENIED ) 06/02/2024 Telephone [facility] [address] [facility] [place] [address] Tiffanie Armenta PA Prior Authorization (Wegovy 2.4 mg/0.75 mL subcutaneous pen - DENIED) 05/31/[address] [address] Dewayne Palmer MD Refill Request (Ondansetron) 05/31/2024 Refill [facility] [address] [facility] [place] [address] Tiffanie Armenta PA Refill Request (Naltrexone, Wegovy) 05/11/2024 Telephone [facility] [address] [place] [address] Sarthak Evans MD Appointment Request (cancel/ reschedule appointment ) 05/02/2024 Refill [facility] [address] [place] [address] Tiffanie Armenta PA Refill Request (Naltrexone, Wegovy) 05/02/2024 Refill [facility] [address] [place] [address] Dewayne Palmer MD Refill Request (Levothyroxine) 04/13/2024 Telephone [facility] [address] [place] [address] Sarthak Evans MD Results 04/11/2024 11:00 AM CDT - 04/11/2024 11:59 PM CDT Hospital Encounter [facility] [address] [place] [address] Sarthak Evans MD Hip pain, left; Left hip impingement syndrome; Gluteal tendinitis of both buttocks 04/11/2024 9:30 AM CDT Telemedicine [facility] [address] [place] [address] Phoenix López MD Follow Up; Telehealth 04/10/2024 Travel 04/04/2024 Refill [facility] [address] [place] [address] Tiffanie Armenta PA Refill Request (Wegovy) 03/15/2024 Refill [facility] [address] [place], [place] [address] Malina Vasquez, CAR FERRIER Refill Request (Naltrexone) from Last 3 Months Immunizations Name Administration Dates Next Due COVID-19 vaccine (Pfizer-Bio NTech 30mcg/0.3mL) PF, MDV 05/03/2021,10/29/2020,10/05/2020 Hepatitis B [...] Answer Date Recorded PHQ-2 TOTAL SCORE 6 06/12/2024 Social Connections Answer Date Recorded Do you often feel lonely or isolated from those around you? 0 02/22/2024 Alcohol Use Answer Date Recorded How often do you have a drink containing alcohol ? 0 11/22/2021 Average Number of Drinks Not on file 022 Frequency of Binge Drinking Not on file 12/2021 Financial Resource Strain Answer Date R ecorded Difficulty of Paying Living Expenses 3 02/22/2024 Difficulty of Paying Living Expenses Not on file 02/22/2024 Food Insecurity Answer Date Recorded Do you worry your food will run out before you are able to buy more? 1 02/22/2024 Transportation Needs Answer Date Record ed Does lack of transportation keep you from medica l appointments? 1 02/22/2024 Does lack of transportation keep you from work, meetings or getting things that you need? 1 02/22/2024 Housing Stability Answer Date Recorded What is your housing situation today? 1 02/22/2024 Education Answer Date Recorded What [...] 94 02/22/2024 11:08 AM CDT Temperature 36.6 C (97.8 F) 01/22/2024 8:41 AM CDT Respiratory Rate 20 01/30/2023 4:35 PM CDT Oxygen Saturation 97% 01/22/2024 8:41 AM CDT Inhaled Oxygen Concentration - - Weight 94.8 kg (209 lb) 06/10/2024 11:00 AM REGIONAL DIRECTOR OF ADMISSIONS Height 157.5 cm (5' 2) 06/10/2024 11:00 AM REGIONAL DIRECTOR OF ADMISSIONS Body Mass Index 38.23 06/10/2024 11:00 AM REGIONAL DIRECTOR OF ADMISSIONS Plan of Treatment Upcoming Encounters Date Type Department Care Team (Late st Contact Info) Description 06/14/2024 8:20 AM REGIONAL DIRECTOR OF ADMISSIONS Office Visit [facility] at [facility] [address] [place] [address] Sarthak Evans MD [address] [place] [address] 07/11/2024 9:30 AM REGIONAL DIRECTOR OF ADMISSIONS Telemedicine [facility] [address] [place] [address] Phoenix López MD [address] [place] [address] 07/28/2024 7:30 AM REGIONAL DIRECTOR OF ADMISSIONS Telemedicine [address] [address] Carolina Yarbrough PsyD, [address] [place] [address] 08/08/2024 8:00 AM REGIONAL DIRECTOR OF ADMISSIONS Telemedicine [facility] [address] [place] [address] Phoenix López MD [address] [place] [address] 08/22/2024 3:30 PM REGIONAL DIRECTOR OF ADMISSIONS Telemedicine [facility] [address] [place] [address] Tiffanie Armenta PA [address] [place] [address] 09/05/2024 8:00 AM REGIONAL DIRECTOR OF ADMISSIONS Telemedicine [facility] [address] [place] [address] Phoenix López MD [address] [place] [address] 10/03/2024 8:00 AM CDT Telemedicine [facility] [address] [place] [address] Phoenix López MD [address] [place] [address] 10/31/2024 8:00 AM CDT Telemedicine [facility] [address] [place] [address] Phoenix López MD [address] [place] [address] 11/28/2024 8:00 AM CDT Telemedicine [facility] [address] [place] [address] Phoenix López MD [address] [place] [address] 12/26/2024 8:00 AM CDT Telemedicine [facility] [address] [place] [address] Phoenix López MD [address] [place] [address] Health Maintenance Due Date Last Done Comments HIV for age 15-65 1997 Influenza for age 9-49 03/20/2024 , 04/17/2022, 03/28/2021, Additional history exists BMI (ht and wt on same day) for age 18+ 06/10/2025 06/10/2024, 06/02/2024, 02/01/2024, Additional history exists Depression screening for age 12+ 06/13/2025 06/13/2024, 06/12/2024, 04/13/2024, Additional history exists Pap test for age 21-65 09/13/2025 (Verified in Care Everywhere or Patient Record) Tetanus booster 08/09/2030 08/09/2020 Tdap Completed 08/09/2020 Hepatitis C screening for ag e 18-79 Completed 02/22/2024 Pneumococcal series for age 6-64 Completed 02/22/20 24, 04/24/2020 COVID-19 vaccine series Completed 05/19/20 24, 04/26/2023, 04/17/2022, Additional history exists Procedures Procedure Name Priority Date/Time Associated Diagnosis Comments MR HIP LEFT WO Routine 04/11/2024 12:32 PM CDT Hip pain, left Left hip impingement syndrome Gluteal tendinitis of both buttocks ANTI HCV Routine 02/22/2024 11:56 AM CDT Encounter for hepatitis C screening test for low risk patient from Last 3 Months or Most Recently Relevant to Health Maintenance Results * MR HIP LEFT WO CONTRAST (04/11/2024 12:32 PM CDT) Anatomical Region Laterality Modality HIPL Magnetic Resonan ce 04/12/2024 12:3 5 PM CDT Impressions 04/12/2024 12:35 PM CDT 1. Fraying and degeneration of the left labrum without labral tear or paralabral cyst. 2. Remainder unremarkable. Dictated by Sarthak Torres MD @ 04/12/2024 12:35:58 PM (Electronically Signed) Narrative 04/12/2024 12:35 PM CDT For Patients: As a result of the Cures Act, medical imaging exams and procedure reports are released immediately into your electronic medical record. You may view this report before your referring provider. If you have questions, please contact your health care provider. EXAM: MRI OF THE LEFT HIP, WITHOUT CONTRAST CLINICAL INDICATION: Left hip pain. COMPARISON PLAIN FILMS: 11/21/2022. COMPARISON CROSS-SECTIONAL IMAGING STUDIES: None. TECHNICAL: Axial, sagittal and coronal PD FS small field of view images of the hip. Coronal T1, PD FS and axial T1 images of the pelvis. FINDINGS: LEFT HIP: Labrum: Irregular fraying and degeneration. No focal labral tear or paralabral cyst. Articular Cartilage: Articular surfaces appear smooth without focal chondral defect or subchondral marrow changes. Joint Space: No effusion, synovitis or loose body. Proximal Femoral Morphology: No significant osseous bump. Femoral head-neck offset is within normal limits. Acetabular Morphology: No focal or global retroversion. No significant overcoverage. RIGHT HIP: No effusion or high-grade chondromalacia. No paralabral cyst. OSSEOUS STRUCTURES: No fracture, marrow edema or marrow replacement process. No evidence for avascular necrosis. MUSCULOTENDINOUS STRUCTURES AND BURSAE: Gluteus Minimus and Medius: No tendon tear or tendinopathy. No muscle atrophy or edema. Bursae: No trochanteric or iliopsoas bursitis. Common Hamstrings: No tendon tear or tendinopathy. Adductors and Flexors: Tendons and myotendinous junctions are intact. No muscle atrophy or edema. SOFT TISSUES: No subcutaneous edema, hematoma or fluid collection. OTHER JOINTS: Sacroiliac joints are maintained. Pubic symphysis is maintained. INTRAPELVIC CONTENTS: No mass, fluid collection or adenopathy. No inguinal hernia. NEUROVASCULAR STRUCTURES: No abnormality involving the visualized proximal femoral or proximal sciatic nerves. No aneurysmal dilation of the visualized distal aorta or iliac arterial circulation. Procedure Note Sarthak Torres MD - 04/12/2024 For Patients: As a result of the Cures Act, medical imagingexams and procedure reports are released immediately into your electronicmedical record. You may view this report before your referring provider.If you have questions, please contact your health care provider. EXAM: MRI OF THE LEFT HIP, WITHOUT CONTRAST CLINICAL INDICATION: Left hip pain. COMPARISON PLAIN FILMS: 11/21/2022. COMPARISON CROSS-SECTIONAL IMAGING STUDIES: None. TECHNICAL: Axial, sagittal and coronal PD FS small field of view images of the hip.Coronal T1, PD FS and axial T1 images of the pelvis. FINDINGS: LEFT HIP: Labrum: Irregular fraying and degeneration. No focal labral tear orparalabral cyst. Articular Cartilage: Articular surfaces appear smooth without focalchondral defect or subchondral marrow changes. Joint Space: No effusion, synovitis or loose body. Proximal Femoral Morphology: No significant osseous bump. Femoralhead-neck offset is within normal limits. Acetabular Morphology: No focal or global retroversion. No significantovercoverage. RIGHT HIP: No effusion or high-grade chondromalacia. No paralabral cyst. OSSEOUS STRUCTURES: No fracture, marrow edema or marrow replacement process. No evidence foravascular necrosis. MUSCULOTENDINOUS STRUCTURES AND BURSAE: Gluteus Minimus and Medius: No tendon tear or tendinopathy. No muscleatrophy or edema. Bursae: No trochanteric or iliopsoas bursitis. Common Hamstrings: No tendon tear or tendinopathy. Adductors and Flexors: Tendons and myotendinous junctions are intact. Nomuscle atrophy or edema. SOFT TISSUES: No subcutaneous edema, hematoma or fluid collection. OTHER JOINTS: Sacroiliac joints are maintained. Pubic symphysis is maintained. INTRAPELVIC CONTENTS: No mass, fluid collection or adenopathy. No inguinal hernia. NEUROVASCULAR STRUCTURES: No abnormality involving the visualized proximal femoral or proximalsciatic nerves. No aneurysmal dilation of the visualized distal aorta oriliac arterial circulation. IMPRESSION: 1. Fraying and degeneration of the left labrum without labral tear orparalabral cyst. 2. Remainder unremarkable. Dictated by Sarthak Torres MD @ 04/12/2024 12:35:58 PM (Electronically Signed) Sarthak Evans MD MR * ANTI HCV (02/22/2024 11:56 AM CDT) HEPATITIS C ANTIBODY Non-Reacti ve Non-React asya 02/22/2024 10:30 PM CDT [facility] [employer] [facility] Comment:Please note, per www .CDC.gov: [...] AM CDT Kamille Stubbs DO [facility] [address] [place] [address], from Last 3 Months or Most Recently Relevant to Health Maintenance Advance Directives * Full Code (Latest Code [...] Comments Code Status Discussion: Discussed Care Teams Emblem Maker Relationship Specialty Start Date End Date Dewayne Palmer MD [address] [place] [address] [facility] [place] [address] PCP - General Family Practice 06/14/21 Tiffanie Armenta PA [address] [facility] [place] [address] Physician Foster Parent 02/01/24
== END 2024-06-14 07:56 | disposition home or self-care (01) ==
LOC: INJ CL 07:55
PROVIDERS: PCP Family Medicine; Visit Provider Family Medicine
DX: M16.12 Unilateral primary osteoarthritis, left hip (principal); M25.552 Pain in left hip
CPT/HCPCS: 20610; 77002; J0702; Q9966

== ENCOUNTER 2024-10-07 06:59 | Outpatient (CLI) | payer MEDICAID, SELFPAY | END 2024-10-07 07:00 | disposition home or self-care (01) | LOC: INJ CL 06:59 | PROVIDERS: PCP Family Medicine; Visit Provider Family Medicine | DX: M54.16 Radiculopathy, lumbar region (principal); M51.369 Other intervertebral disc degeneration, lumbar region without mention of lumbar back pain or lower extremity pain | CPT/HCPCS: 62323; J0702; Q9966 ==

== ENCOUNTER 2025-01-17 09:09 | Outpatient (CLI) | payer MEDICAID, SELFPAY ==
--- OUTSIDE RECORDS SUMMARY | 2025-01-17 10:17 | XMS_ITS | Clinical Summary ---
Author Organization [employer] [facility] Address [address] [place] [address] Care Team Providers Care Powder Guard Name Role Phone Dewayne Palmer MD Primary Care Provider [phone] Tiffanie Armenta PA Unavailable Allergies Active Allergy [...] Field Low 11/18/2016 Sneezing, runny nose Medications multivitamin (MVI) tablet Take 1 Tablet by mouth once daily. Active CPAPIndications:O SA (obstructive sleep apnea) CPAP machine for home use at pressure 5 cmw, full face mask x1/3month with a full face cushion x1/mo 1 Each 11 023 Active diclofenac topical (Voltaren) 1 % gelIndications:Ch ronic midline low back pain without sciatica,Bilatera l hip pain Apply 2 g topically to affected area(s) four times daily. 100 g 2 023 Active Insulin [place], Disposable, (BD Perla 2nd Gen Pen Needle) 32 gauge x /32Indications: Morbid obesity with BMI of 40.0-44.9, adult (HC) USE DIRECTED REMOVE THE 2 COVERS ON THE INSULIN PEN NEEDLE BEFORE ADMINISTERING INSULIN DOSE 100 Each 3 024 Active NebulizerIndicati ons:Moderate persistent asthma without complication (HC) Nebulizer, disposable neb kit x 4, reuseable neb kit x 1, mask x 1, filters x 1. Frequency of use: daily; Medication: albuterol Length of need: lifelong months 1 Each 024 Active ubrogepant (Ubrelvy) 50 mg tab tabletIndications :Intractable migraine without status migrainosus, unspecified migraine type Take 1 Tablet (50 mg) by mouth 2 times daily if needed for Migraine. Give at minimum 2hrs apart. Max Dose: 200mg per 24hrs. 180 Tablet 1 024 Active pentosan polysulfate (Elmiron) 100 mg capsuleIndication s:Hemorrhagic cystitis Take 1 Capsule (100 mg) by mouth three times daily. 270 Capsule 024 Active budesonide-formot April 160-4.5 mcg/actuation (160-4.5 mcg each actuation) inhalerIndication s:Moderate persistent asthma without complication (HC) Inhale 2 Puffs by mouth two times daily. 10.2 g 025 Active albuterol 0.083% (2.5 mg/3 mL) neb solutionIndicatio ns:Moderate persistent asthma without complication (HC) Inhale 3 mL (2.5 mg) via a nebulizer every 4 hours if needed for Shortness Of Breath. 75 mL 3 025 Active liothyronine 5 mcg tabletIndications :Hypothyroidism (acquired) Take 1 Tablet (5 mcg) by mouth once daily. 90 Tablet 025 Active montelukast 10 mg tabletIndications :Moderate persistent asthma without complication (HC) Take 1 Tablet (10 mg) by mouth at bedtime. 90 Tablet Active omeprazole 40 mg Delayed-Release capsuleIndication s:Chronic GERD Take 1 capsule by mouth twice daily 180 Capsule Active levothyroxine 175 mcg tabletIndications :Hypothyroidism (acquired) TAKE 1 TABLET BY MOUTH ONCE DAILY BEFORE BREAKFAST 30 Tablet Active prazosin 5 mg capsuleIndication s:Generalized anxiety disorder,Posttrau matic stress disorder,Panic disorder with agoraphobia,Socia l anxiety disorder Take 2 capsules (10 mg) by mouth every morning AND 1 capsule (5 mg) every afternoon AND 2 capsules (10 mg) every evening 360 Capsule 3 Active clomiPRAMINE 75 mg capsuleIndication s:Generalized anxiety disorder,Posttrau matic stress disorder,Panic disorder with agoraphobia,Major depressive disorder, recurrent, moderate (HC),Mixed obsessional thoughts and acts Take 3 Capsules (225 mg) by mouth at bedtime. 270 Capsule Active vortioxetine 20 mg tabletIndications :Generalized anxiety disorder,Posttrau matic stress disorder,Panic disorder with agoraphobia,Major depressive disorder, recurrent, moderate (HC),Mixed obsessional thoughts and acts,Illness anxiety disorder Take 1 Tablet (20 mg) by mouth once daily. 90 Tablet Active lurasidone 120 mg tabIndications:Ge neralized anxiety disorder,Posttrau matic stress disorder,Panic disorder with agoraphobia,Major depressive disorder, recurrent, moderate (HC),Mixed obsessional thoughts and acts Take 1 Tablet (120 mg) by mouth with dinner. 90 Tablet Active mirtazapine 30 mg tabletIndications :Generalized anxiety disorder,Panic disorder with agoraphobia,Mixed obsessional thoughts and acts Take 1 Tablet (30 mg) by mouth at bedtime. May also take 0.5 tablets (15 mg) if needed for sleep 90 Tablet Active clonazePAM 0.5 mg tabletIndications :Generalized anxiety disorder,Panic disorder with agoraphobia,Illne ss anxiety disorder Take 1.5 Tablets (0.75 mg) by mouth two times daily. Further refills will be prescribed during an appointment 84 Tablet 2 Active lurasidone 40 mg tabletIndications :Posttraumatic stress disorder,Panic disorder with agoraphobia,Major depressive disorder, recurrent, moderate (HC),Mixed obsessional thoughts and acts Take 1 Tablet (40 mg) by mouth with dinner. With a 120 mg tablet for a total of 160 mg. 90 Tablet 3 Active Zepbound 12.5 mg/0.5 mL penIndications:Cl ass 2 obesity with body mass index (BMI) of 37.0 to 37.9 in adult, unspecified obesity type, unspecified whether serious comorbidity present Inject 12.5 mg subcutaneous once weekly. 2 mL Active metFORMIN 500 mg Extended-Release tabletIndications :Obesity (BMI 30-39.9) Take 2 Tablets (1,000 mg) by mouth two times daily with meals. 360 Tablet Active naltrexone 50 mg tabletIndications :Obesity (BMI 30-39.9) Take 1 Tablet (50 mg) by mouth once daily. 90 Tablet Active ondansetron 4 mg disintegrating tabletIndications :Injury of head, initial encounter DISSOLVE 1 TABLET IN MOUTH EVERY 8 HOURS NEEDED FOR NAUSEA AND VOMITING 30 Tablet 025 Active Ventolin HFA 90 mcg/actuation inhalerIndication s:Moderate persistent asthma without complication (HC) Inhale 1 Puff by mouth every 4 hours if needed for Shortness Of Breath. 18 g 025 Active Ventolin HFA 90 mcg/actuation inhalerIndication s:Moderate persistent asthma without complication (HC) INHALE 1 PUFF BY MOUTH EVERY 4 HOURS NEEDED FOR SHORTNESS OF BREATH 18 g 025 2024 Discontinued ondansetron 4 mg disintegrating tabletIndications :Injury of head, initial encounter DISSOLVE 1 TABLET IN MOUTH EVERY 8 HOURS NEEDED FOR NAUSEA AND VOMITING 30 Tablet 025 2024 Discontinued Active Problems Problem Noted Date Diagnosed Date Cervical cancer screening 12/22/2024 Overview (12/22/2024): 11/2024 NIL/ HPV negative Plan: HPV-based testing due 11/2029 Illness anxiety disorder 04/11/2024 Social anxiety disorder [...] Insomnia, psychophysiological 09/22/2018 Irritable bowel syndrome 09/22/2018 [place] syndrome 05/19/2018 History of Taina-en-Y gastric bypass [...] Encounters Date Type Department Care Team Description 01/17/2025 Travel 01/13/2025 11:20 AM CDT Office Visit [facility] [address] [facility] [address] [place] [phone] Meg Delgado MD Consult (Ref from Genet Vela/Recurrent loss); Nurse/Clinic Staff Only (Pt states that she was having regular periods every month up until Aug, then they have become irregular) 01/12/[address] [facility] [address] [place] [address] Dewayne Palmer MD Refill Request (Ventolin Hfa) 12/28/[address] [facility] [address] [place] [address] Dewayne Palmer MD Refill Request (Ondansetron) 12/28/2024 Medical Messaging [facility] [address] [place] [address] Sarthak Evans MD Hip and back injections 12/27/2024 Telephone [facility] [address] [place] [address] Tiffanie Armenta PA Prior Authorization (Zepbound 12.5 mg/0.5 mL pen (Denied)) 12/20/2024 1:00 PM CDT Telemedicine [facility] [address] [facility] [address] [place] [address] Medical Nutrition Therapy ([facility] follow up ) 12/20/2024 Travel 12/16/2024 3:00 PM CDT Telemedicine [facility] [address] [place] [address] Tiffanie Armenta PA Weight (Follow up); Telehealth (No vitals taken ) 12/16/2024 Travel 12/09/2024 10:30 AM CDT Telemedicine [facility] [address] [place] [address] Phoenix López MD Telehealth; Medication Management 12/08/2024 Travel 12/06/2024 11:00 AM CDT Office Visit [facility] [address] [place] [address] Genet Vela PA Consult (lump on right side of vagina/hurts when pressure on it /started about a couple months ago) 12/06/2024 10:30 AM CDT Orders Only [facility] [address] [place] [address] Lab 12/06/2024 Travel 12/04/2024 Refill [facility] [address] [place] [address] Tiffanie Armenta PA Refill Request (Zepbound) 12/01/2024 Refill [facility] [address] [place] [address] Tiffanie Armenta PA Refill Request (Zepbound) 12/01/2024 Refill [facility] [address] [place] [address] Phoenix López MD Refill Request (Clonazepam, Lurasidone) 12/01/[address] [phone] Dewayne Palmer MD Refill Request (Levothyroxine, Ondansetron) 11/09/[address] [phone] Dewayne Palmer MD Prior Authorization (budesonide-formotero L 160-4.5 mcg/actuation (160-4.5 mcg each actuation) inhaler COVERED) 11/06/2024 Refill [facility] [address] [place] [address] Tiffanie Armenta PA Refill Request (Zepbound) 11/06/2024 Refill [facility] [address] [place] [address] Phoenix López MD Refill Request (Lurasidone) 11/06/[address] [phone] Dewayne Palmer MD Refill Request (Levothyroxine, Ondansetron, Ventolin Hfa) 11/04/2024 11:30 AM CDT Office Visit [address] [phone] Dewayne Palmer MD Lump (Right side of vaginal area on labiea) 11/04/2024 9:00 AM CDT Procedure Only [facility] [address] [place] [address] Sarthak Evans MD Procedure (Ultrasound guided injection lef... 11/04/2024 Travel from Last 3 Months Immunizations Immunization Administration Dates Next Due COVID-19 vaccine ([employer] 30mcg/0.3mL) PF, MDV 05/03/2021,10/29/2020,10/05/2020 Hepatitis B [...] PHQ-2 Answer Date Recorded PHQ-2 TOTAL SCORE 5 12/08/2024 Social Connections Answer Date Recorded Do you [...] is your housing situation today? 1 02/22/2024 Utilities Answer Date Recorded Do you have trouble paying f or utilities (for example, heat, electricity, water, phone)? 1 02/22/2024 Education Answer Date Recorded What is the highest level of school you have completed or the highest degree you have received? Bachelor's degree (e.g., BA, AB, BS) 09/19/2022 Comments No Sex and Gender Information Value Date Recorded Sex Assigned at Not on file Legal Sex Female 1:40 PM CDT Gender Identity Not on file Sexual Orientation Not on file Occupation Industry Job Start Date Job End Date College student Not on file Not on file Not on file Obstetrics History Para Term AB IAB SAB Ectopic Multiple Livin g Live Births 2 2 2 Date Outcome GA Total Labor Labor/2nd/3rd Weight Sex Type Anes PTL Mercedes A1 A5 Name Clin 2013 SAB 09/2019 SAB Last Filed Vital Signs Vital Sign Reading Time Taken Comments Blood Pressure 90/64 01/13/2025 11:37 AM CDT Pulse 104 12/06/2024 11:07 AM CDT Temperature 36.7 C (98 F) 11/04/2024 9:06 AM CDT Respiratory Rate 20 01/30/2023 4:35 PM CDT Oxygen Saturation 98% 11/04/2024 11:27 AM CDT Inhaled Oxygen Concentration - - Weight 92.5 kg (204 lb) 01/13/2025 11:37 AM CDT Height 157.5 cm (5' 2.01) 12/20/2024 1:00 PM CD T Body Mass Index 37.3 12/20/2024 1:00 PM CDT Plan of Treatment Upcoming Encounters Date Type Department Care Team (Late st Contact Info) Description 01/27/2025 3:30 PM CDT Telemedicine [facility] [address] [place], [place] [phone] Tiffanie Armenta PA [address] [place], [place] [phone] 02/07/2025 10:00 AM CDT Office Visit [facility] [address] [place] [address] Phoenix López MD [address] [place] [address] 02/16/2025 7:20 AM CDT Procedure Only [facility] [address] [place] [address] Sarthak Evans MD [address] [place] [address] 03/13/2025 11:00 AM CDT Telemedicine [facility] [address] [place] [address] Phoenix López MD [address] [place] [address] 03/21/2025 10:00 AM CDT Telemedicine [facility] [address] [place] [address] Tiffanie Armenta PA [address] [place] [address] 04/11/2025 11:00 AM CDT Telemedicine [facility] [address] [place] [address] Phoenix López MD [address] [place] [address] 05/09/2025 11:00 AM CDT Telemedicine [facility] [address] [place] [address] Phoenix López MD [address] [place] [address] 06/12/2025 11:00 AM ASSISTANT PRODUCTION MANAGER Telemedicine [facility] [address] [place] [address] Phoenix López MD [address] [place] [address] 07/11/2025 11:00 AM ASSISTANT PRODUCTION MANAGER Telemedicine [facility] [address] [place] [address] Phoenix López MD [address] [place] [address] 08/14/2025 11:00 AM ASSISTANT PRODUCTION MANAGER Telemedicine [facility] [address] [place] [address] Phoenix López MD [address] [place] [address] 09/12/2025 11:00 AM ASSISTANT PRODUCTION MANAGER Telemedicine [facility] [address] [place] [address] Phoenix López MD [address] [place] [address] Health Maintenance Due Date Last Done Comments HIV for age 15-65 1997 Influenza Vaccine (#1) 2025 3, 04/17/2022, 03/28/2021, Additional history exists Depression screening for age 12+ 12/08/2025 12/08/2024, 09/15/2024, 09/05/2024, Additional history exists BMI (ht and wt on same day) for age 18+ 12/20/2025 12/20/2024, 12/16/2024, 11/04/2024, Additional history exists Pap test for age 21-65 12/06/2029 5, 12/06/2024, 09/13/2020 (Verified in Care Everywhere or Patient Record) Tetanus booster 08/09/2030 08/09/2020 Hepatitis B series for 19+ Completed 09/29, 05/29/2023, 03/27/2023 Hepatitis C screening for ag e 18-79 Completed 02/22/2024 Pneumococcal series for age 6-49 Completed 02/22/20 24, 04/24/2020 COVID-19 vaccine series Completed 05/19/20, 04/26/2023, 04/17/2022, Additional history exists Procedures Procedure Name Priority Date/Time Associated Diagnosis Comments AMB EPIDURAL STEROID INJECTION Routine 01/17/2025 6:52 AM CDT Spinal stenosis of lumbar region with neurogenic claudication Lumbar facet arthropathy Lumbar radiculopathy AN/SQQ 89(V)15 SONAR SYSTEM JOURNEYMAN THIN PREP PAP SCREEN IMAGED Routine 12/06/2024 1:29 PM CDT Cervical cancer screening HPV HIGH RISK Routine 12/06/2024 1:29 PM CDT Cervical cancer screening PATH TISSUE EXAM Routine 12/06/2024 11:4 5 AM CDT Labial cyst TSH Routine 12/06/2024 10:42 AM CDT Hypothyroidism (acquired) T4,FREE Routine 12/06/2024 10:42 AM CDT Hypothyroidism (acquired) BEDSIDE US STUDY ARCHIVE Routine 11/04/2024 9:47 AM CDT Left hip impingement syndrome Hip pain, left ANTI HCV Routine 02/22/2024 11:56 AM CDT Encounter for hepatitis C screening test for low risk patient from Last 3 Months or Most Recently Relevant to Health Maintenance Results * AN/SQQ 89(V)15 SONAR SYSTEM JOURNEYMAN THIN PREP PAP SCREEN IMAGED (12/06/2024 1:29 PM CDT) Case Report Gynecologic Cytology Report Case: [id number] Authorizing Provider: Genet Vela PA Collected: 12/06/20241328 Ordering Location: [facility] Received: 12/06/2024 1329 [facility] First Screen: Baccam, Minie Specimen: AN/SQQ 89(V)15 SONAR SYSTEM JOURNEYMAN ThinPrep Vial Screening, Cervical 12/21/2024 4:27 PM CDT [facility] INTERPRETATION/ RESULT NEGATIVE FOR INTRAEPITHELIAL LESION OR MALIGNANCY (NIL) (none) 12/21/2024 4:27 PM CDT [facility] at 1627 CDT SPECIMEN ADEQUACY Satisfactory for evaluation No endocervical component seen 12/21/2024 4:27 PM CDT [facility] HPV REQUEST HPV and PAP 12/21/2024 4:27 PM CDT [facility] Date of LMP 10/28/2024 12/21/2024 4:27 PM CDT [facility] Last Pap Date 202012/21/2024 4:27 PM CDT [facility] Last Pap Result First Pap/Unknown 4:27 PM CDT [facility] Abnormal Pap or Dalton Bx in last 5 years No 12/21/2024 4:27 PM CDT [facility] Menstrual Status Regular Periods 12/21/2024 4:27 PM CDT [facility] Dalton Bx Done Today No 12/21/2024 4:27 PM CDT [facility] Additional Information None given 12/21/2024 4:27 PM CDT [facility] Comment: Cytology is screened at [facility] - [address] [address] and [facility] - [address] [place] [address] and [facility] - [address] [place] [address] Interpreted at [facility] - [address], [place] [address] Automated Review Successful 12/21/2024 4:27 PM CDT [facility] Comment:Specimen processed s uccessfully by automated jira administrator device, ThinPrep Imaging System, [employer] ANCILLARY TESTING AN/SQQ 89(V)15 SONAR SYSTEM JOURNEYMAN HPV Ordered, Please see separate report 12/21/2024 4:27 PM CDT [facility] Note The pap test is a screening technique, not a diagnostic procedure. It is used primarily to screen for squamous cancers and precursor lesions. Published studies have shown that it is subject to both false negative and false positive results. The pap test should not be used as the sole means to diagnose or exclude pre-malignant and malignant lesions. 12/21/2024 4:27 PM CDT [facility] Other (Cervical) Non-Blood / Unknown 12/06/2024 1:29 PM CDT 12/06/2024 1:29 PM CDT Genet KEY PATHOLOGY/CYTOLOGY Sandy l Result Performing Organization Address City/[facility]/ZIP Co de Phone Number [facility] [address] [address], [place] * HPV HIGH RISK (12/06/2024 1:29 PM CDT) TYPE 16 Negative Negative 12/09/2024 11:11 AM CDT [facility] TYPE 18 Negative Negative 12/09/2024 11:11 AM CDT [facility] OTHER HIGH RISK TYPES Negative Negative 12/09/2024 11:11 AM CDT [facility] Other (Cervical) Non-Blood / Unknown 12/06/2024 1:29 PM CDT 12/07/2024 12:15 PM CDT Narrative [facility] - 12/09/2024 11:11 AM CDT HPV types 16, 18, 31, 33, 35, 39, 45, 51, 52, 56, 58, 59, 66 and 68 DNA were undetectable or below the pre-set threshold. Methodology: Danny Eligio 4800 HPV Test us Genet KEY MICROBIOLOGY Final R esult Performing Organization Address [facility]/ZIP Co de Phone Number [facility] [address] [place] [address], [place] * PATH TISSUE EXAM (12/06/2024 11:45 AM CDT) Case Report Pathology Report Case: [id number] Authorizing Provider: Genet Vela PA Collected: 12/06/2024 1145 Ordering Location: [facility] Received: 12/06/2024 1324 [facility]ty Clinic Pathologist: Irwin Jo MD Specimen: Right Labia 12/08/2024 11:33 AM CDT [facility] Final Diagnosis A) VULVA, RIGHT LABIA, BIOPSY: 1. Ectopic mammary tissue 2. Negative for atypia and malignancy 12/08/2024 11:33 AM CDT [facility] at 1133 CDT Clinical Information 44-year-old woman with uncomfortable right labial lesion; of note, the patient had a similar lesion removed some years ago, with pathology showing extramammary tissue. 12/08/2024 11:33 AM CDT [facility] Gross Description A) Received in formalin, labeled with the patient's name and date of is a 1.2 x 0.9 x 0.7 cm unoriented nodular stokes-white rubbery tissue which is inked blue, quadrisected transversely disclosing mostly solid stokes-white. Specimen is entirely submitted in 1 cassette. LDW 12/06/2024 12/08/2024 11:33 AM CDT [facility] Microscopic Description The final diagnosis is based on microscopic examination of appropriate sections of all specimens. 12/08/2024 11:33 AM CDT [facility] Additional Information Interpreted at [facility] - [address] [address] 12/08/2024 11:33 AM CDT [facility] Other (Right Labia) Non-Blood / Unknown 12/06/2024 11:45 AM CDT 12/06/2024 1:24 PM CDT us Genet KEY PATHOLOGY/CYTOLOGY Sandy powers Result [facility] [address] [place] [address], [place] * (ABNORMAL) TSH (12/06/2024 10:42 AM CDT) TSH 0.04(L) mIU/L [facility] Comment: Reference Range > or = 20 Years 0.40-4.50 Ranges First trimester 0.26-2.66 Second trimester 0.55-2.73 Third trimester 0.43-2.91 Blood BLOOD SPECIMEN / Unknown 12/06/2024 10:42 AM CDT 12/06/2024 10:43 AM CDT Narrative [facility] - 12/07/2024 4:20 AM CDT FASTING:NO FASTING: NO Dewayne Palmer MD CHEMISTRY Final Resul t Performing Organization Address City/[facility]/ZIP Co de Phone Number [facility] [id number] [place] [address], [facility] [address] [place] [address] * T4,FREE (12/06/2024 10:42 AM CDT) T4, FREE 1.3 0.8 - 1.8 ng/dL [facility] Blood BLOOD SPECIMEN / Unknown 12/06/2024 10:42 AM CDT 12/06/2024 10:43 AM CDT Narrative [facility] - 12/07/2024 4:20 AM CDT FASTING:NO FASTING: NO Dewayne Palmer MD CHEMISTRY Final Resul t [facility] [address] [place] [address], [facility] [address] [place] [address] * BEDSIDE US STUDY ARCHIVE (11/04/2024 9:47 AM CDT) Winsome Weaver - 11/04/2024 9:47 AM CDT The patient was seen for ultrasound guided injection by Dr. Sarthak Cristina. Ultrasound was not used for diagnostic purposes, but to guide the needle placement and document the position of the injection. See patient's EPIC encounter for the detail of the procedure; see RAVEN for saved images of the injection. us Sarthak Evans MD PROCEDURE ORD Final Resu lt * ANTI HCV (02/22/2024 11:56 AM CDT) HEPATITIS C ANTIBODY Non-Reacti ve Non-React asya 02/22/2024 10:30 PM CDT [facility] Comment:Please note, per www .CDC.gov: [...] 11:56 AM CDT 02/22/2024 11:56 AM CDT us Kamille Stubbs DO SEND OUTS Final Result [facility] [address] [place] [address], from Last 3 Months or Most Recently Relevant to Health Maintenance Insurance * Guarantor: Elizabeth Chew Account Type Relation to Patient Date of Phone Billing Address Personal/Family Self 1980 [address] [place] [id number] [facility] Advance Directives * Full Code (Latest Code [...] Comments Code Status Discussion: Discussed Care Teams Powder Guard Relationship Specialty Start Date End Date Dewayne Palmer MD [address] [place] [address] [place] [address] PCP - General Family Practice 06/14/21 Tiffanie Armenta PA [address] [facility] [place] [address] Physician Import Export Agent 02/01/24
--- OUTSIDE RECORDS SUMMARY | 2025-01-18 00:28 | XMS_ITS | Clinical Summary ---
Author Organization [employer] [facility] Address [address] [place] [address] Care Team Providers Care Counterperson Name Role Phone Dewayne Palmer MD Primary Care Provider [phone] Tiffanie Armenta PA Unavailable Allergies Active Allergy [...] daily. 100 g 2 023 Active Insulin [place], Disposable, (BD Perla 2nd Gen Pen Needle) [...] Insomnia, psychophysiological 09/22/2018 Irritable bowel syndrome 09/22/2018 [place] syndrome 05/19/2018 History of Taina-en-Y gastric bypass [...] Date Type Department Care Team Description 01/17/2025 10:00 AM CDT Office Visit [facility] [address] [place] [address] Sarthak Evans MD Procedure (L4-5 ILESI) 01/17/2025 Travel 01/13/2025 11:20 AM CDT Office Visit [facility] [address] [place] [phone] Meg Delgado MD Consult (Ref from Genet Vela/Recurrent loss); Nurse/Clinic Staff Only (Pt states that she was having regular periods every month up until Aug, then they have become irregular) 01/12/2025 Refill [facility] [address] [place] [phone] Dewayne Palmer MD Refill Request (Ventolin Hfa) 12/28/[address] [place] [id number] Dewayne Palmer MD Refill Request (Ondansetron) 12/28/2024 Medical Messaging [facility] [address] [place] [address] Sarthak Evans MD Hip and back injections 12/27/2024 Telephone [facility] [address] [place] [address] Tiffanie Armenta PA Prior Authorization (Zepbound 12.5 mg/0.5 mL pen (Denied)) 12/20/2024 1:00 PM CDT Telemedicine [facility] [address] [facility] [address] [place] [address] Medical Nutrition Therapy ([facility] follow up ) 12/20/2024 Travel 12/16/2024 3:00 PM CDT Telemedicine [facility] [address] [facility] [place] [address] Tiffanie Armenta PA Weight (Follow up); Telehealth (No vitals taken ) 12/16/2024 Travel 12/09/2024 10:30 AM CDT Telemedicine [facility] [address] [place] [address] Phoenix López MD Telehealth; Medication Management 12/08/2024 Travel 12/06/2024 11:00 AM CDT Office Visit [facility] [address] [facility] [address] [place] [address] Genet Vela PA Consult (lump on right side of vagina/hurts when pressure on it /started about a couple months ago) 12/06/2024 10:30 AM CDT Orders Only [facility] [address] [place] [address] Lab 12/06/2024 Travel 12/04/2024 Refill [facility] [address] [place] [address] Tiffanie Armenta PA Refill Request (Zepbound) 12/01/2024 Refill [facility] [address] [place] [address] Tiffanie Armenta PA Refill Request (Zepbound) 12/01/2024 Refill [facility] [address] [place] [address] Phoenix López MD Refill Request (Clonazepam, Lurasidone) 12/01/[address] [phone] Dewayne Palmer MD Refill Request (Levothyroxine, Ondansetron) 11/09/[address] [phone] Dewayne Palmer MD Prior Authorization (budesonide-formotero L 160-4.5 mcg/actuation (160-4.5 mcg each actuation) inhaler COVERED) 11/06/2024 Refill [facility] [address] [place] [address] Tiffanie Armenta PA Refill Request (Zepbound) 11/06/2024 Refill [facility] [address] [place] [address] Phoenix López MD Refill Request (Lurasidone) 11/06/[address] [address] Dewayne Palmer MD Refill Request (Levothyroxine, Ondansetron, Ventolin Hfa) 11/04/2024 11:30 AM CDT Office Visit [address] [phone] Dewayne Palmer MD Lump (Right side of vaginal area on labiea) 11/04/2024 9:00 AM CDT Procedure Only [facility] [address] [place] [address] Sarthak Evans MD Procedure (Ultrasound guided injection lef... 11/04/2024 Travel from Last 3 Months Immunizations Immunization Administration Dates Next Due COVID-19 vaccine (ScheduleSoft-Bio NTech 30mcg/0.3mL) ROSANGELA HYLTON 05/03/2021,10/29/2020,10/05/2020 Hepatitis B (Adult) 09/30/2023,05/29/2023,2022 Influenza RIV4 [...] Info) Description 01/27/2025 3:30 PM CDT Telemedicine [facility] [address] [place] [address] Tiffanie Armenta PA [address] [place] [address] 02/07/2025 10:00 AM CDT Office Visit [facility] [address] [place] [address] Phoenix López MD [address] [place] [address] 02/16/2025 7:20 AM CDT Procedure Only [facility] [address] [place] [address] Sarthak Evans MD [address] [place] [address] 03/13/2025 11:00 AM CDT Telemedicine [facility] [address] [place] [address] Phoenix López MD [address] [place] [address] 03/21/2025 10:00 AM CDT Telemedicine [facility] [address] [place] [address] Tiffanie Armenta PA [address] [place] [address] 04/11/2025 11:00 AM CDT Telemedicine [facility] [address] [place] [address] Phoenix López MD [address] [place] [address] 05/09/2025 11:00 AM CDT Telemedicine [facility] [address] [place] [address] Phoenix López MD [address] [place] [address] 06/12/2025 11:00 AM STITCHDOWN TOE FORMER Telemedicine [facility] [address] [place] [address] Phoenix López MD [address] [place] [address] 07/11/2025 11:00 AM STITCHDOWN TOE FORMER Telemedicine [facility] [address] [place] [address] Phoenix López MD [address] [place] [address] 08/14/2025 11:00 AM STITCHDOWN TOE FORMER Telemedicine [facility] [address] [place] [address] Phoenix López MD [address] [place] [address] 09/12/2025 11:00 AM STITCHDOWN TOE FORMER Telemedicine [facility] [address] [place] [address] Phoenix López MD [address] [place] [address] Health Maintenance Due Date Last Done Comments [...] neurogenic claudication Lumbar facet arthropathy Lumbar radiculopathy MEDICAL TRANSCRIPTIONIST THIN PREP PAP SCREEN IMAGED Routine 12/06/2024 [...] Recently Relevant to Health Maintenance Results * MEDICAL TRANSCRIPTIONIST THIN PREP PAP SCREEN IMAGED (12/06/2024 1:29 PM CDT) Case Report Gynecologic Cytology Report Case: [id number] Authorizing Provider: Genet Vela PA Collected: 12/06/2024 1329 Ordering Location: [facility] Received: 12/06/2024 1329 Specialty Clinic First Screen: Baccam, Minie Specimen: MEDICAL TRANSCRIPTIONIST ThinPrep Vial Screening, Cervical 12/21/2024 4:27 PM CDT [facility] [employer] [facility] ENTRAL LABORATORY INTERPRETATION/ RESULT NEGATIVE FOR INTRAEPITHELIAL LESION OR MALIGNANCY (NIL) (none) 12/21/2024 4:27 PM CDT [facility] ENTRAL LABOR[facility] at 1627 CDT SPECIMEN ADEQUACY Satisfactory for evaluation No endocervical component seen 12/21/2024 4:27 PM CDT [facility] HPV REQUEST HPV and PAP 12/21/2024 4:27 PM CDT [facility] Date of LMP 10/28/2024 12/21/2024 4:27 PM CDT [facility] Last Pap Date 202012/21/2024 4:27 PM CDT [facility] Last Pap Result First Pap/Unknown 4:27 PM CDT [facility] Abnormal Pap or [place] Bx in last 5 years No 12/21/2024 4:27 PM CDT [facility] Menstrual Status Regular Periods 12/21/2024 4:27 PM CDT [facility] [place] Bx Done Today No 12/21/2024 4:27 PM CDT [facility] Additional Information None given 12/21/2024 4:27 PM CDT [facility] Comment: Cytology is screened at [facility] [employer] [facility] Laboratory - [address], [place] [address] and [facility] - [address] [place] [address] and [facility] - [address] [place] [address] Interpreted at [facility] [employer] [facility] Laboratory - [address], [place] [address] Automated Review Successful 12/21/2024 4:27 PM CDT [facility] Comment:Specimen processed s uccessfully by automated jackscrew man device, ThinPrep Imaging System, [employer] ANCILLARY TESTING MEDICAL TRANSCRIPTIONIST HPV Ordered, Please see separate report 12/21/2024 4:27 PM CDT [facility] EN[facility] Note The pap test is a [...] and malignant lesions. 12/21/2024 4:27 PM CDT [facility] Other (Cervical) Non-Blood / Unknown 12/06/2024 1:29 PM CDT 12/06/2024 1:29 PM CDT Genet KEY PATHOLOGY/CYTOLOGY Sandy l Result Performing Organization Address [facility] Co de Phone Number [facility] [address] [place] [address], [place] * HPV HIGH RISK (12/06/2024 1:29 PM CDT) TYPE 16 Negative Negative 12/09/2024 11:11 AM CDT [facility] TRAL LABORATORY TYPE 18 Negative Negative 12/09/2024 11:11 AM CDT [facility] TRAL LABORATORY OTHER HIGH RISK TYPES Negative Negative 12/09/2024 11:11 AM CDT [facility] Other (Cervical) Non-Blood / Unknown 12/06/2024 1:29 PM CDT 12/07/2024 12:15 PM CDT Narrative [facility] - 12/09/2024 11:11 AM CDT HPV types 16, 18, 31, 33, 35, 39, 45, 51, 52, 56, 58, 59, 66 and 68 DNA were undetectable or below the pre-set threshold. Methodology: Danny Eligio 4800 HPV Test Genet KEY MICROBIOLOGY Final R esult Performing Organization Address [facility] Co de Phone Number [facility] [address] [place] [address], [place] * PATH TISSUE EXAM (12/06/2024 11:45 AM CDT) Case Report Pathology Report Case: [id number] Authorizing Provider: Genet Vela PA Collected: 12/06/2024 1145 Ordering Location: [facility] Received: 12/06/2024 1324 Specialty Clinic Pathologist: Irwin Jo MD Specimen: Right Labia 12/08/2024 11:33 AM CDT [email or web address] ENTRAL LAB[facility] Final Diagnosis A) VULVA, RIGHT LABIA, BIOPSY: 1. Ectopic mammary tissue 2. Negative for atypia and malignancy 12/08/2024 11:33 AM CDT [email or web address] ENTRAL LABORATORY at 1133 CDT Clinical Information 44-year-old woman with uncomfortable right labial lesion; of note, the patient had a similar lesion removed some years ago, with pathology showing extramammary tissue. 12/08/2024 11:33 AM CDT [email or web address] ENTRAL LABORATORY Gross Description A) Received in formalin, labeled with the patient's name and date of is a 1.2 x 0.9 x 0.7 cm unoriented nodular stokes-white rubbery tissue which is inked blue, quadrisected transversely disclosing mostly solid stokes-white. Specimen is entirely submitted in 1 cassette. LDW 12/06/2024 12/08/2024 11:33 AM CDT [email or web address] ENTRAL LABORATORY Microscopic Description The final diagnosis is based on microscopic examination of appropriate sections of all specimens. 12/08/2024 11:33 AM CDT [facility] [employer] [facility] ENTRAL LABORATORY Additional Information Interpreted at [facility] [employer] Central Laboratory - [address], [place] [address] 12/08/2024 11:33 AM CDT [facility] [employer] [facility] ENTRAL LABORATORY Other (Right Labia) Non-Blood / Unknown 12/06/2024 11:45 AM CDT 12/06/2024 1:24 PM CDT Genet KEY PATHOLOGY/CYTOLOGY Sandy l Result [facility]AL LABORATORY [address] [place] [address], * (ABNORMAL) TSH (12/06/2024 10:42 AM CDT) [...] CHEMISTRY Final Resul t Performing Organization Address [facility]/ZIP Co de Phone Number [facility] [employer] [facility] [address] [place] [address], [facility] [address] [place] [address] * T4,FREE (12/06/2024 10:42 AM CDT) Pathologist [facility] T4, FREE 1.3 0.8 - 1.8 ng/dL [facility] Blood BLOOD SPECIMEN / Unknown 12/06/2024 10:42 AM CDT 12/06/2024 10:43 AM CDT Narrative [facility] - 12/07/2024 4:20 AM CDT FASTING:NO FASTING: NO Dewayne Palmer MD CHEMISTRY Final Resul t [employer] [facility] [address] [place] [place] [address], [place] [phone] [facility] [address] [place] [address] * BEDSIDE US STUDY ARCHIVE (11/04/2024 9:47 AM CDT) Narrative Winsome Martinez - 11/04/2024 9:47 AM CDT The patient [...] ve Non-React asya 02/22/2024 10:30 PM CDT [facility] [employer] LABORATORY-[facility] TRAL LABORATORY Comment:Please note, per www .CDC.gov: [...] AM CDT Kamille Stubbs DO SEND OUTS Final Result [facility] [address] [place] [address], from Last 3 Months or Most Recently Relevant to Health Maintenance Insurance * Guarantor: Elizabeth Chew Account Type Relation to Patient Date of Phone Billing Address Personal/Family Self 1980 [address] [place] [id number] [facility] Advance Directives * Full Code (Latest Code [...] Comments Code Status Discussion: Discussed Care Teams Counterperson Relationship Specialty Start Date End Date Dewayne Palmer MD [address] [place] [address] [place] [id number] PCP - General Family Practice 06/14/21 Tiffanie Armenta PA [address] [facility] [place] [address] Physician Credit Officer 02/01/24
== END 2025-01-17 09:10 | disposition home or self-care (01) ==
PROVIDERS: PCP Family Medicine; Visit Provider Family Medicine
DX: M54.16 Radiculopathy, lumbar region (principal); M51.369 Other intervertebral disc degeneration, lumbar region without mention of lumbar back pain or lower extremity pain
CPT/HCPCS: 62323; J0702; Q9966

== ENCOUNTER 2025-06-09 09:02 | Outpatient (CLI) | payer MEDICAID, SELFPAY | END 2025-06-09 09:03 | disposition home or self-care (01) | LOC: INJ CL 09:03 | PROVIDERS: PCP Family Medicine; Visit Provider Family Medicine | DX: M54.16 Radiculopathy, lumbar region (principal); M51.369 Other intervertebral disc degeneration, lumbar region without mention of lumbar back pain or lower extremity pain | CPT/HCPCS: 62323; Q9966 ==